=== PATIENT | male | born 1935 | race Caucasian/White ===

== ENCOUNTER 2018-05-22 10:13 | Inpatient (IN) | payer MEDICARE, OTHER ==
[~2018-05-22] VITALS: Ht 165.1 cm; Wt 76.2 kg
[2018-05-22 10:15] VITALS: BP 161/94
[2018-05-22 10:40] LABS: BASOPHILS % (AUTO) 1.7 % (0.0-2.0); EOSINOPHILS % (AUTO) 2.7 % (0.0-3.0); HEMATOCRIT 42.9 % (42.0-52.0); HEMOGLOBIN 14.5 G/DL (14.2-18.0); LYMPHOCYTES % (AUTO) 24.7 % (20.0-45.0); MEAN CORPUSCULAR VOLUME 96 FL (80-99); MONOCYTES % (AUTO) 10.9 % (1.0-10.0); NEUTROPHILS % (AUTO) 60.1 % (45.0-75.0); PLATELET COUNT 177 K/UL (150-450); RED BLOOD COUNT 4.48 M/UL (4.70-6.10); RED CELL DISTRIBUTION WIDTH 11.7 % (11.6-14.8); WHITE BLOOD COUNT 6.7 K/UL (4.8-10.8)
--- NOTE | 2018-05-22 11:06 | Emergency Room Report ---
History of Present Illness General Chief Complaint: Chest Pain Source: Patient, Medical Record, EMS Present Illness HPI 82-year-old male with a history of hypertension, diabetes, high cholesterol, coronary disease status post MD 4 years ago treated medically, presents with left parasternal chest discomfort type complaint that started just half an hour prior to arrival, was given aspirin as well as 2 sublingual nitroglycerin with much improvement of pain. He reports she's never had recent similar pain in the past, and he had no other symptoms such as shortness of breath cough fever abdominal pain and vomiting or any other associated symptomatology. He denies leg pain leg swelling, recent travel, hemoptysis, and reports he's not had chest pain like this recently at all. He cannot think of anything he ate or drank that may have triggered it either. Allergies: Coded Allergies: No Known Allergies (Unverified , 05/22/18) Patient History Past Medical History: see triage record Reviewed Nursing Documentation: PMH: Agreed; PSxH: Agreed Nursing Documentation-PMH Past Medical History: No History, Except For Hx Cardiac Problems: Yes Hx Hypertension: Yes Hx Diabetes: Yes Review of Systems Musculoskeletal: Reports: other - Chronic left knee pain All Other Systems: negative except mentioned in HPI Physical Exam Vital Signs Date Time Temp Pulse Resp B/P (MAP) Pulse Ox O2 Delivery O2 Flow Rate FiO2 05/22/18 10:06 99.0 86 14 196/98 99 Room Air Sp02 EP Interpretation: reviewed, normal General Appearance: no apparent distress, alert, non-toxic Head: normocephalic Eyes: bilateral eye normal inspection, bilateral eye PERRL, bilateral eye EOMI ENT: normal ENT inspection, hearing grossly normal, normal pharynx, no angioedema, normal voice, moist mucus membranes Neck: normal inspection, full range of motion, supple, supple/symm/no masses Respiratory: chest non-tender, lungs clear, normal breath sounds, chest symmetrical, palpation of chest normal Cardiovascular #1: normal peripheral pulses, regular rate, rhythm Cardiovascular #2: 2+ radial (R), 2+ radial (L) Gastrointestinal: normal inspection, non tender, soft, no mass, no guarding, no rebound Rectal: deferred Genitourinary: normal inspection, no CVA tenderness Musculoskeletal: back normal, gait/station normal, normal range of motion, non- tender, no calf tenderness, Shannon's Sign negative Neurologic: alert, responsive, 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 EKG Diagnostic Results EKG Time: 10:05 EP Interpretation: no st-t changes, no twi's, RBBB Rate: normal Rhythm: NSR ST Segments: no acute changes ASA given to the pt in ED: Yes Rhythm Strip Diag. Results Rhythm Strip Time: 11:05 EP Interpretation: yes Rate: 53 Rhythm: NSR, no PVC's, no ectopy Chest X-Ray Diagnostic Results Chest X-Ray Diagnostic Results : Chest X-Ray Ordered: Yes # of Views/Limited/Complete: 1 View Indication: Chest Pain EP Interpretation: Yes Interpretation: no consolidation, no effusion, no pneumothorax, no acute cardiopulmonary disease Impression: No acute disease Electronically Signed by: Devan Chaparro MD Last Vital Signs Date Time Temp Pulse Resp B/P (MAP) Pulse Ox O2 Delivery O2 Flow Rate FiO2 05/22/18 10:15 55 13 Room Air 05/22/18 10:15 97.8 161/94 98 Disposition: ADMITTED INPATIENT Condition: Stable Referrals: NOT CHOSEN FLY/,REFERRING (PCP) DEVAN CHAPARRO M.D May 22, 2018 11:06
--- NOTE | 2018-05-22 11:12 | Diagnostic Imaging Report ---
Indication: Chest pain Comparison: 01/25/2009 A single view chest radiograph was obtained. Findings: No definite infiltrate or pulmonary vascular congestion identified. The heart is enlarged. The aorta is mildly enlarged consistent with atherosclerotic vascular disease. The bones are osteopenic. Impression: No acute disease
[2018-05-22 11:17] VITALS: BP 154/52
[2018-05-22 11:58] LABS: ANION GAP 6 mmol/L (5-15); BLOOD UREA NITROGEN 32 mg/dL (7-18); CALCIUM 8.9 MG/DL (8.5-10.1); CARBON DIOXIDE 30 MMOL/L (21-32); CHLORIDE 104 MMOL/L (98-107); CREATININE 1.9 MG/DL (0.55-1.30); SODIUM 140 MMOL/L (136-145)
[2018-05-22 12:04] LABS: ALANINE AMINOTRANSFERASE 19 U/L (12-78); ALBUMIN/GLOBULIN RATIO 0.8 (1.0-2.7); ALKALINE PHOSPHATASE 52 U/L (46-116); ASPARTATE AMINO TRANSFERASE 19 U/L (15-37); BILIRUBIN,TOTAL 0.2 MG/DL (0.2-1.0)
[2018-05-22] MEDS ORDERED: Nitroglycerin Subl 0.4mg tab SL PRN (12:45)
[2018-05-22] MEDS ORDERED: KEPPRA500 M4 ORAL (12:59)
[2018-05-22] MEDS ORDERED: ACTOS30 MG ORAL (12:59)
[2018-05-22] MEDS ORDERED: AMLODIPINE BESYL5 MG ORAL (12:59)
[2018-05-22] MEDS ORDERED: VITAMIN D1000 UNI1 ORAL (12:59)
[2018-05-22] MEDS ORDERED: ASPIRIN325 MG ORAL (12:59)
[2018-05-22] MEDS ORDERED: ZOCOR20 M1 ORAL (12:59)
[2018-05-22] MEDS ORDERED: CYMBALTA60 MG ORAL (12:59)
[2018-05-22] MEDS ORDERED: METOPROLOL SUCC25 MG ORAL (12:59)
[2018-05-22] MEDS ORDERED: NAMENDA10 MG ORAL (12:59)
[2018-05-22 13:17] VITALS: BP 152/61
[2018-05-22] MEDS ORDERED: Enoxaparin 40mg Inj SUBQ SCH (14:00)
--- NOTE | 2018-05-22 14:23 | Cardiac Electrophysiology PN ---
Subjective Subjective [id number] Objective Last 24 Hour Vital Signs Date Time Temp Pulse Resp B/P (MAP) Pulse Ox O2 Delivery O2 Flow Rate FiO2 05/22/18 13:18 58 16 152/61 98 Room Air 05/22/18 13:17 58 15 152/61 99 Room Air 05/22/18 11:17 97.8 52 15 154/52 99 Room Air 05/22/18 10:15 55 13 Room Air 05/22/18 10:15 97.8 55 13 161/94 98 Room Air 05/22/18 10:06 99.0 86 14 196/98 99 Room Air Laboratory Tests Test 05/22/18 10:20 05/22/18 11:35 White Blood Count 6.7 K/UL (4.8-10.8) Red Blood Count 4.48 M/UL (4.70-6.10) L Hemoglobin 14.5 G/DL (14.2-18.0) Hematocrit 42.9 % (42.0-52.0) Mean Corpuscular Volume 96 FL (80-99) Mean Corpuscular Hemoglobin 32.3 PG (27.0-31.0) H Mean Corpuscular Hemoglobin Concent 33.7 G/DL (32.0-36.0) Red Cell Distribution Width 11.7 % (11.6-14.8) Platelet Count 177 K/UL (150-450) Mean Platelet Volume 7.6 FL (6.5-10.1) Neutrophils (%) (Auto) 60.1 % (45.0-75.0) Lymphocytes (%) (Auto) 24.7 % (20.0-45.0) Monocytes (%) (Auto) 10.9 % (1.0-10.0) H Eosinophils (%) (Auto) 2.7 % (0.0-3.0) Basophils (%) (Auto) 1.7 % (0.0-2.0) Sodium Level 140 MMOL/L (136-145) Potassium Level 5.0 MMOL/L (3.5-5.1) Chloride Level 104 MMOL/L (98-107) Carbon Dioxide Level 30 MMOL/L (21-32) Anion Gap 6 mmol/L (5-15) Blood Urea Nitrogen 32 mg/dL (7-18) H Creatinine 1.9 MG/DL (0.55-1.30) H Estimat Glomerular Filtration Rate mL/min (>60) Glucose Level 102 MG/DL (74-106) Calcium Level 8.9 MG/DL (8.5-10.1) Total Bilirubin 0.2 MG/DL (0.2-1.0) Aspartate Amino Transf (AST/SGOT) 19 U/L (15-37) Alanine Aminotransferase (ALT/SGPT) 19 U/L (12-78) Alkaline Phosphatase 52 U/L (46-116) Troponin I 0.007 ng/mL (0.000-0.056) Total Protein 6.6 G/DL (6.4-8.2) Albumin 3.0 G/DL (3.4-5.0) L Globulin 3.6 g/dL Albumin/Globulin Ratio 0.8 (1.0-2.7) L Andre Oswald MD May 22, 2018 14:23
[2018-05-22] MEDS ORDERED: Lexiscan 0.4mg/5ml syringe IV PRN (14:30)
[2018-05-22] MEDS ORDERED: Metoprolol Succinate XL 25mg tab ORAL SCH (15:30)
[2018-05-22] MEDS ORDERED: Metoprolol Succinate XL 50mg tab ORAL SCH (15:30)
[2018-05-22] MEDS ORDERED: DULoxetine 30mg cap ORAL SCH (16:00)
[2018-05-22 16:08] VITALS: BP 148/74
[2018-05-22] MEDS: NovoLOG Insulin Flexpen SUBQ SCH ×2 (16:30→20:55)
[2018-05-22] MEDS: Memantine 10mg tab ORAL SCH (17:11)
--- NOTE | 2018-05-22 17:30 | Consultation ---
DATE OF CONSULTATION: 05/22/2018 CARDIOLOGY CONSULTATION CONSULTING PHYSICIAN: Andre Oswald M.D. REFERRING PHYSICIAN: Zi Levy M.D. REASON FOR CONSULTATION: Chest pain, management of hypertension. HISTORY OF PRESENT ILLNESS: The patient is an 82-year-old [place] gentleman with history of hypertension, diabetes, hyperlipidemia, coronary artery disease, history of prior myocardial infarction four years ago presented to the emergency room with left-sided parasternal chest discomfort that started half hour prior to arrival to the emergency room. The patient received aspirin and two sublingual nitroglycerin with improvement of the pain. The patient states he usually follows up with Dr. Pollack as his primary care doctor. The patient's EKG also shows sinus rhythm with incomplete right bundle-branch block but no acute ST-T wave abnormalities. Cardiology consultation was obtained for further evaluation and management. REVIEW OF SYSTEMS: Review of systems was negative other than what was mentioned in the history of present illness. PAST MEDICAL HISTORY: As mentioned above. FAMILY HISTORY: Noncontributory. SOCIAL HISTORY: The patient does not smoke or drink alcohol. PHYSICAL EXAMINATION: VITAL SIGNS: Show blood pressure of 150/61, pulse 58, respirations 16, temperature is 98. HEAD AND NECK: Shows no JVD. LUNGS: Clear. CARDIOVASCULAR: Regular S1 and S2 with no gallop or murmur. ABDOMEN: Soft. EXTREMITIES: No pitting edema. LABORATORY AND DIAGNOSTIC DATA: EKG as mentioned above. White count of 6.7, hemoglobin 14.5, hematocrit 43, and platelet count 177. Sodium 140, potassium 5.0, BUN of 32, creatinine 1.9, and glucose of 102. Troponin is negative. ASSESSMENT AND PLAN: 1. Chest pain. The patient with multiple risk factors for coronary artery disease as well as history of prior SC. We will completely rule out SC protocol. We will repeat EKG and echocardiogram. In the meantime, continue the patient on aspirin and Lipitor. We will schedule the patient for nuclear stress test for further evaluation. 2. Hyperlipidemia on Lipitor. 3. Hypertension. Blood pressure currently elevated. Start the patient on metoprolol 25 mg b.i.d. 4. Diabetes on insulin. Thank you very much, Dr. Levy, for allowing me to participate in the care of this patient. Please do not hesitate to contact me for any questions regarding my evaluation, Sincerely, Andre Oswald M.D. DR: Momo JOB#: [id number] CC:
--- NOTE | 2018-05-22 17:45 | History and Physical Report ---
DATE OF ADMISSION: 05/22/2018 REASON FOR ADMISSION: 1. Chest pain. 2. Hypertension. HISTORY OF PRESENT ILLNESS: The patient is an 82-year-old gentleman with known diabetes, hypertension, hyperlipidemia, status post myocardial infarction four years ago. He presented to the emergency room this morning for further evaluation and care of left parasternal chest discomfort and pain. He was given sublingual nitroglycerin and aspirin. The patient is slightly feeling better. No nausea, vomiting, or diarrhea. Denies any palpitations. ALLERGIES: No known drug allergies. PAST MEDICAL HISTORY: 1. Hypertension. 2. Diabetes mellitus. 3. Hyperlipidemia. 4. Coronary artery disease. 5. Myocardial infarction. SOCIAL HISTORY: The patient denies any current tobacco, alcohol, or illicit drug use. PAST SURGICAL HISTORY: Noncontributory. REVIEW OF SYSTEMS: NEUROLOGIC: The patient denies headache, change in vision, syncope, or presyncopal episodes. CARDIOVASCULAR: He was having chest pain and pressure, but no palpitations. PULMONARY: No difficulty breathing, productive cough, or sputum. GASTROINTESTINAL/GENITOURINARY: No changes in urinary or bowel habits. No nausea, vomiting or diarrhea. ENDOCRINOLOGIC: No night sweats, fevers, or chills. MUSCULOSKELETAL: The patient is feeling weak, tired, and fatigued. LABORATORY DATA: Labs dated 05/22/2018, white cell count 6.7, hemoglobin 14.5, and platelet count 177,000. Sodium 140, potassium 5, BUN 32, creatinine 1.9, and bicarb 30. Troponin 0.007. PHYSICAL EXAMINATION: VITAL SIGNS: Blood pressure 152/61, respiratory rate 16, pulse 58, and temperature 97.8. GENERAL: The patient is awake and alert, not otherwise in distress. HEENT: Extraocular muscles intact. No lymphadenopathy noted. CARDIOVASCULAR: S1 and S2. No rubs or gallops. PULMONARY: Clear to auscultation bilaterally. No rales, rhonchi or wheezes. ABDOMEN: Nondistended and nontender. EXTREMITIES: No edema noted. ASSESSMENT AND PLAN: 1. Acute coronary syndrome, unstable angina with chest pain. Cardiology has been consulted. The patient is undergoing echocardiogram with serial troponins. Defer further management to Cardiology. 2. Hypertension, stable. We will continue home medications and adjust as deemed appropriate. 3. Diabetes mellitus. The patient to continue insulin sliding scale along with Actos. 4. Deep venous thrombosis prophylaxis with Lovenox. 5. Dementia. The patient to continue his home medication of Namenda. 6. At this time Cardiology, Dr. Oswald has been called. Zichantale Levy MD DR: ADAIR JOB#: [id number] CC:
[2018-05-22 20:00] VITALS: BP 146/77
[2018-05-22] MEDS: Atorvastatin 20mg tab ORAL SCH (20:57)
[2018-05-22] MEDS ORDERED: Metoprolol 25mg tab ORAL SCH (21:00)
[2018-05-23] VITALS: BP 145/77
[2018-05-23 04:00] VITALS: BP 125/79
[2018-05-23 05:11] LABS: BASOPHILS % (AUTO) 0.6 % (0.0-2.0); EOSINOPHILS % (AUTO) 2.8 % (0.0-3.0); HEMATOCRIT 37.4 % (42.0-52.0); HEMOGLOBIN 12.8 G/DL (14.2-18.0); LYMPHOCYTES % (AUTO) 25.4 % (20.0-45.0); MEAN CORPUSCULAR VOLUME 95 FL (80-99); MONOCYTES % (AUTO) 12.5 % (1.0-10.0); NEUTROPHILS % (AUTO) 58.7 % (45.0-75.0); PLATELET COUNT 163 K/UL (150-450); RED BLOOD COUNT 3.94 M/UL (4.70-6.10); RED CELL DISTRIBUTION WIDTH 11.6 % (11.6-14.8); WHITE BLOOD COUNT 6.3 K/UL (4.8-10.8)
[2018-05-23 05:25] LABS: ANION GAP 10 mmol/L (5-15); BLOOD UREA NITROGEN 33 mg/dL (7-18); CALCIUM 9.2 MG/DL (8.5-10.1); CARBON DIOXIDE 26 MMOL/L (21-32); CHLORIDE 104 MMOL/L (98-107); CHOLESTEROL 157 MG/DL (< 200); CREATININE 2.1 MG/DL (0.55-1.30); HDL CHOLESTEROL 41 MG/DL (40-60); SODIUM 140 MMOL/L (136-145); TRIGLYCERIDES 81 MG/DL (30-150)
[2018-05-23] MEDS: NovoLOG Insulin Flexpen SUBQ SCH ×4 (06:16→20:39)
--- NOTE | 2018-05-23 06:19 | Nephrology Progress Note ---
Assessment/Plan Assessment/Plan A/P 1) ACS/Chest Pain - Patient in AFib - await cardiology mgmt and further recc's 2) JEREMY- Cr at 2.1 - Increase IVFs, check Renal US 3) HTN- stable 4) DVT prophylaxsis- lovenox 5) HTN- stable 6) DM- ISS and actos Subjective Date patient seen: May 23, 2018 Time patient seen: 06:16 ROS Limited/Unobtainable: No Cardiovascular: Reports: chest pain Allergies: Coded Allergies: ALPRAZOLAM (Verified Allergy, Mild, 05/22/18) All Systems: reviewed and negative except above Subjective Patient says still having chest discomfort Objective Last 24 Hour Vital Signs Date Time Temp Pulse Resp B/P (MAP) Pulse Ox O2 Delivery O2 Flow Rate FiO2 05/23/18 00:00 98.7 67 20 145/77 (99) 96 05/23/18 00:00 70 05/22/18 21:00 Room Air 05/22/18 20:00 98.2 63 23 146/77 (100) 99 05/22/18 16:35 81 148/74 05/22/18 16:08 98.0 81 18 148/74 (98) 99 05/22/18 16:03 83 163/91 05/22/18 16:00 59 05/22/18 15:43 Room Air 05/22/18 13:18 58 16 152/61 98 Room Air 05/22/18 13:17 58 15 152/61 99 Room Air 05/22/18 11:17 97.8 52 15 154/52 99 Room Air 05/22/18 10:15 55 13 Room Air 05/22/18 10:15 97.8 55 13 161/94 98 Room Air 05/22/18 10:06 99.0 86 14 196/98 99 Room Air Intake and Output 05/22/18 05/23/18 18:59 06:59 Intake Total 900 ml Balance 900 ml Intake Oral 800 ml IV Total 100 ml # Voids 2 Laboratory Tests 05/22/18 10:20: White Blood Count 6.7, Red Blood Count 4.48L, Hemoglobin 14.5, Hematocrit 42.9, Mean Corpuscular Volume 96, Mean Corpuscular Hemoglobin 32.3H, Mean Corpuscular Hemoglobin Concent 33.7, Red Cell Distribution Width 11.7, Platelet Count 177, Mean Platelet Volume 7.6, Neutrophils (%) (Auto) 60.1, Lymphocytes (%) (Auto) 24.7, Monocytes (%) (Auto) 10.9H, Eosinophils (%) (Auto) 2.7, Basophils (%) ( Auto) 1.7 05/22/18 11:35: Sodium Level 140, Potassium Level 5.0, Chloride Level 104, Carbon Dioxide Level 30, Anion Gap 6, Blood Urea Nitrogen 32H, Creatinine 1.9H, Estimat Glomerular Filtration Rate , Glucose Level 102, Calcium Level 8.9, Total Bilirubin 0.2, Aspartate Amino Transf (AST/SGOT) 19, Alanine Aminotransferase (ALT/SGPT) 19, Alkaline Phosphatase 52, Troponin I 0.007, Total Protein 6.6, Albumin 3.0L, Globulin 3.6, Albumin/Globulin Ratio 0.8L 05/22/18 18:50: Troponin I 0.007 05/23/18 03:00: White Blood Count 6.3, Red Blood Count 3.94L, Hemoglobin 12.8L, Hematocrit 37.4L , Mean Corpuscular Volume 95, Mean Corpuscular Hemoglobin 32.5H, Mean Corpuscular Hemoglobin Concent 34.3, Red Cell Distribution Width 11.6, Platelet Count 163, Mean Platelet Volume 7.7, Neutrophils (%) (Auto) 58.7, Lymphocytes (% ) (Auto) 25.4, Monocytes (%) (Auto) 12.5H, Eosinophils (%) (Auto) 2.8, Basophils (%) (Auto) 0.6, Sodium Level 140, Potassium Level 4.0, Chloride Level 104, Carbon Dioxide Level 26, Anion Gap 10, Blood Urea Nitrogen 33H, Creatinine 2.1H, Estimat Glomerular Filtration Rate , Glucose Level 88, Calcium Level 9.2, Troponin I 0.004, Pro-B-Type Natriuretic Peptide 653H, Triglycerides Level 81, Cholesterol Level 157, LDL Cholesterol 101H, HDL Cholesterol 41, Cholesterol/ HDL Ratio 3.8 Height (Feet): 5 Height (Inches): 5.00 Weight (Pounds): 168 General Appearance: no apparent distress, alert EENT: normal ENT inspection Neck: non-tender Cardiovascular: regularly irregular Respiratory/Chest: lungs clear, normal breath sounds Abdomen: non tender, soft Edema: no edema noted Arm (L), no edema noted Arm (R), no edema noted Leg (L), no edema noted Leg (R), no edema noted Pedal (L), no edema noted Pedal (R), no edema noted Generalized Zi Levy MD May 23, 2018 06:19
[2018-05-23 08:00] VITALS: BP 136/63
[2018-05-23] MEDS ORDERED: Metoprolol Succinate XL 25mg tab ORAL SCH (09:00)
[2018-05-23] MEDS: Aspirin Baby 81mg ORAL SCH (09:25)
[2018-05-23] MEDS: DULoxetine 30mg cap ORAL SCH (09:25)
[2018-05-23] MEDS: Memantine 10mg tab ORAL SCH ×2 (09:25→18:06)
--- NOTE | 2018-05-23 09:36 | Diagnostic Imaging Report ---
EXAM: US Retroperitoneal Limited, Renal CLINICAL HISTORY: Increasing renal function tests TECHNIQUE: Real-time ultrasound of the retroperitoneum (limited) with image documentation. COMPARISON: No relevant prior studies available. FINDINGS: Aorta: Abdominal aorta and IVC are obscured by overlying bowel gas. Right kidney: Scattered simple-appearing right renal cortical cysts, largest measuring 3.8 cm. Right kidney measures 11.6 x 6.4 x 5.7 cm. Diffusely echogenic parenchyma. Normal cortical thickness. No visible stones. No hydronephrosis. Left kidney: Scattered simple-appearing left renal cortical cysts, largest measuring 1.7 cm. Left kidney measures 11.1 x 5.5 x 5.1 cm. Diffusely echogenic parenchyma. Normal cortical thickness. No visible stones. No hydronephrosis. Bladder: Prevoid urinary bladder volume of 31 cc. Bilateral ureteral jets were identified with Doppler interrogation. Other findings: Incidental note of a 3.1 cm simple-appearing cyst in the left hepatic lobe. IMPRESSION: 1. Bilateral echogenic kidneys, suggesting underlying renal parenchymal disease. No hydronephrosis. 2. Scattered simple-appearing right renal cortical cysts, largest measuring 3.8 cm. 3. Scattered simple-appearing left renal cortical cysts, largest measuring 1.7 cm. 4. Incidental note of a 3.1 cm simple-appearing cyst in the left hepatic lobe.
[2018-05-23 12:00] VITALS: BP 107/48
[2018-05-23] MEDS ORDERED: Enoxaparin 40mg Inj SUBQ SCH (14:00)
--- NOTE | 2018-05-23 14:34 | Cardiology Report ---
APPROVED REPORT EXAM: Two-dimensional and M-mode echocardiogram with Doppler and color Doppler. INDICATION Chest Pain M-Mode DIMENSIONS IVSd1.1 (0.7-1.1cm)Left Atrium (MM)3.2 (1.6-4.0cm) LVDd4.3 (3.5-5.6cm)Aortic Root2.6 (2.0-3.7cm) PWd0.9 (0.7-1.1cm)Aortic Cusp Exc.1.8 (1.5-2.0cm) LVDs2.9 (2.5-4.0cm) PWs1.4 cm Normal left ventricular chamber size, systolic function and wall motion. Left ventricular ejection fraction estimated to be 55-60 %. Borderline left ventricular hypertrophy. Anterior Echo-free space, may be due to pericardial fat or effusion. Left atrial size at upper limits of normal. Right cardiac chamber sizes are within normal limits. Focal aortic valve sclerosis with adequate cusp excursion. Thickened mitral valve leaflets with normal excursion. Mild mitral annulus and aortic root calcification. Pulmonic valve not well visualized. Normal tricuspid valve structure. IVC dilated at 2.5 cm with physiological collapse, suggestive of increased RA pressure. A color flow and spectral Doppler study was performed and revealed: Moderate aortic insufficiency. Mild mitral regurgitation. Mitral diastolic velocities suggest mild left ventricular diastolic dysfunction (Grade I). No tricuspid regurgitation. Tricuspid systolic velocities suggests peak right ventricular systolic pressure of 47 mmHg, consistent with moderate pulmonary hypertension. No pulmonic regurgitation present.
--- NOTE | 2018-05-23 14:56 | Cardiology Report ---
APPROVED REPORT EKG Measurement Heart [id number] Atrial fibrillation Left axis deviation Abnormal ECG
--- NOTE | 2018-05-23 14:56 | Cardiac Electrophysiology PN ---
Assessment/Plan Assessment/Plan 1. Chest pain. The patient with multiple risk factors for coronary artery disease as well as history of prior SC and PTCA 2010. Ruled out for SC. Echocardiogram EF 55% Continue the patient on aspirin and Lipitor. We will schedule the patient for nuclear stress test for further evaluation. 2. Atrial fib with rate 105 that converted to SR. Increase Toprol to 50 mg daily. 3. Hyperlipidemia on Lipitor. 4. Hypertension. Increase metoprolol to 50 mg daily. DC Norvasc 5. Diabetes on insulin. DARIO Son Ophtalmologist Armani BISHOP RN Subjective Subjective No CP or SOB. Had atrial fib with mild CP last night that converted to SR. Objective Last 24 Hour Vital Signs Date Time Temp Pulse Resp B/P (MAP) Pulse Ox O2 Delivery O2 Flow Rate FiO2 05/23/18 09:27 61 136/63 05/23/18 09:26 61 136/63 05/23/18 09:00 Room Air 05/23/18 08:00 97.7 61 20 136/63 (87) 96 05/23/18 08:00 58 05/23/18 05:20 97 05/23/18 04:00 105 05/23/18 04:00 97.9 99 20 125/79 (94) 96 05/23/18 00:00 98.7 67 20 145/77 (99) 96 05/23/18 00:00 70 05/22/18 21:00 Room Air 05/22/18 20:00 98.2 63 23 146/77 (100) 99 05/22/18 16:35 81 148/74 05/22/18 16:08 98.0 81 18 148/74 (98) 99 05/22/18 16:03 83 163/91 05/22/18 16:00 59 05/22/18 15:43 Room Air Intake and Output 05/22/18 05/23/18 19:00 07:00 Intake Total 900 ml Output Total 300 ml Balance 900 ml -300 ml Intake Oral 800 ml IV Total 100 ml Output Urine Total 300 ml # Voids 2 Laboratory Tests Test 05/22/18 18:50 05/23/18 03:00 Troponin I 0.007 ng/mL (0.000-0.056) 0.004 ng/mL (0.000-0.056) White Blood Count 6.3 K/UL (4.8-10.8) Red Blood Count 3.94 M/UL (4.70-6.10) L Hemoglobin 12.8 G/DL (14.2-18.0) L Hematocrit 37.4 % (42.0-52.0) L Mean Corpuscular Volume 95 FL (80-99) Mean Corpuscular Hemoglobin 32.5 PG (27.0-31.0) H Mean Corpuscular Hemoglobin Concent 34.3 G/DL (32.0-36.0) Red Cell Distribution Width 11.6 % (11.6-14.8) Platelet Count 163 K/UL (150-450) Mean Platelet Volume 7.7 FL (6.5-10.1) Neutrophils (%) (Auto) 58.7 % (45.0-75.0) Lymphocytes (%) (Auto) 25.4 % (20.0-45.0) Monocytes (%) (Auto) 12.5 % (1.0-10.0) H Eosinophils (%) (Auto) 2.8 % (0.0-3.0) Basophils (%) (Auto) 0.6 % (0.0-2.0) Sodium Level 140 MMOL/L (136-145) Potassium Level 4.0 MMOL/L (3.5-5.1) Chloride Level 104 MMOL/L (98-107) Carbon Dioxide Level 26 MMOL/L (21-32) Anion Gap 10 mmol/L (5-15) Blood Urea Nitrogen 33 mg/dL (7-18) H Creatinine 2.1 MG/DL (0.55-1.30) H Estimat Glomerular Filtration Rate mL/min (>60) Glucose Level 88 MG/DL (74-106) Calcium Level 9.2 MG/DL (8.5-10.1) Pro-B-Type Natriuretic Peptide 653 pg/mL (0-125) H Triglycerides Level 81 MG/DL (30-150) Cholesterol Level 157 MG/DL (< 200) LDL Cholesterol 101 mg/dL (<100) H HDL Cholesterol 41 MG/DL (40-60) Cholesterol/HDL Ratio 3.8 (3.3-4.4) Objective HEAD AND NECK: Shows no JVD. LUNGS: Clear. CARDIOVASCULAR: Regular S1 and S2 with no gallop or murmur. ABDOMEN: Soft. EXTREMITIES: No pitting edema. Andre Oswald MD May 23, 2018 14:56
--- NOTE | 2018-05-23 15:02 | Cardiology Report ---
APPROVED REPORT EKG Measurement Heart [id number] Sinus bradycardia Possible Left atrial enlargement Left axis deviation Incomplete right bundle branch block Abnormal ECG
[2018-05-23 16:00] VITALS: BP 132/59
[2018-05-23 19:57] VITALS: BP 97/47
[2018-05-23] MEDS: Atorvastatin 20mg tab ORAL SCH (20:29)
--- NOTE | 2018-05-23 21:15 | Consultation ---
DATE OF CONSULTATION: 05/23/2018 PULMONARY CONSULTATION CONSULTING PHYSICIAN: Joshua Stoner M.D. HISTORY OF PRESENT ILLNESS: This is a very pleasant 82-year-old male, who was admitted to the hospital with chest pain and shortness of breath. I have been asked to perform pulmonary consultation. This is an 82-year-old male with history of hypertension, diabetes mellitus, hyperlipidemia, CAD, and previous OR, who came to the hospital with parasternal chest pain. This occurred approximately an hour or so before arrival to the ER. The patient received aspirin and nitroglycerin. The patient's EKG was nonspecific. The patient also underwent imaging studies overnight, which show clear lung march bilaterally. The patient denies being an active smoker, although reports he has smoked in the past socially. REVIEW OF SYSTEMS: Denies any headaches, hematemesis, melena, hematochezia, or weight loss. PAST MEDICAL HISTORY: Notable for hypertension, diabetes mellitus, hyperlipidemia, CAD, and previous tobacco usage. PAST SURGICAL HISTORY: None reported. SOCIAL HISTORY: As discussed above. FAMILY HISTORY: Noncontributory. PHYSICAL EXAMINATION: GENERAL: Reveals an 82-year-old male. HEENT: Unremarkable. LUNGS: Clear breath sounds bilaterally. HEART: Normal heart sounds. ABDOMEN: Soft. EXTREMITIES: No edema. NEUROLOGIC: Nonfocal. LABORATORY DATA: Laboratory testing is unremarkable with normal CBC and BMP. Creatinine 1.9. IMPRESSION: 1. Chest pain, rule out CAD/ACS. 2. Ex-smoker. 3. Hypertension. 4. Hyperlipidemia. 5. Diabetes mellitus. DISCUSSION: Continue present medications and care. Predominant issue is cardiac. I do not see pulmonary issue. I will continue to follow carefully as requested by Dr. Levy. Thank you for the consultation. Joshua Stoner M.D. DR: JOSE JOB#: [id number] CC:
[2018-05-23] MEDS ORDERED: Zolpidem 5mg tab ORAL ONE (22:45)
[2018-05-24] VITALS: BP 101/50
[2018-05-24 04:00] VITALS: BP 97/59
[2018-05-24] MEDS: NovoLOG Insulin Flexpen SUBQ SCH ×4 (06:00→20:49)
[2018-05-24 08:00] VITALS: BP 149/70
--- NOTE | 2018-05-24 08:06 | Pulmonology Progress Note ---
Assessment/Plan Assessment/Plan IMPRESSION: 1. Chest pain, rule out CAD/ACS. 2. Ex-smoker. 3. Hypertension. 4. Hyperlipidemia. 5. Diabetes mellitus. DISCUSSION: Continue present medications and care. Predominant issue is cardiac. Pulmonary status is stable. I will continue to follow carefully as requested by Dr. Levy. Stress test planned. Subjective Interval Events: No new problems. Feeling well. Constitutional: Reports: no symptoms HEENT: Repors: no symptoms Respiratory: Reports: no symptoms Cardiovascular: Reports: no symptoms Gastrointestinal/Abdominal: Reports: no symptoms Genitourinary: Reports: no symptoms Allergies: Coded Allergies: ALPRAZOLAM (Verified Allergy, Mild, 05/22/18) Objective Last 24 Hour Vital Signs Date Time Temp Pulse Resp B/P (MAP) Pulse Ox O2 Delivery O2 Flow Rate FiO2 05/24/18 04:00 97.7 65 21 97/59 (72) 99 05/24/18 04:00 67 05/24/18 00:00 97.8 65 21 101/50 (67) 100 05/24/18 00:00 72 05/23/18 21:00 Room Air 05/23/18 20:00 65 05/23/18 19:57 97.7 64 20 97/47 (64) 96 05/23/18 16:00 63 05/23/18 16:00 97.7 61 18 132/59 (83) 99 05/23/18 12:00 97.9 62 18 107/48 (67) 96 05/23/18 12:00 66 05/23/18 09:27 61 136/63 05/23/18 09:26 61 136/63 05/23/18 09:00 Room Air Intake and Output 05/23/18 05/24/18 18:59 06:59 Intake Total 450 ml 652 ml Balance 450 ml 652 ml Intake Oral 450 ml 300 ml IV Total 352 ml # Voids 3 3 # Bowel Movements 3 General Appearance: no acute distress HEENT: normocephalic Respiratory/Chest: chest wall non-tender, lungs clear Cardiovascular: normal peripheral pulses, normal rate Current Medications Medications (Trade) Dose Ordered Sig/Usha Route PRN Reason Start Time Stop Time Status Last Admin Dose Admin Acetaminophen (Tylenol) 650 mg Q4H PRN ORAL Mild Pain (Pain Scale 1-3) 05/22/18 12:45 06/21/18 12:44 05/23/18 04:53 Aspirin (ASA) 81 mg DAILY ORAL 05/23/18 09:00 06/22/18 08:59 05/23/18 09:25 Atorvastatin Calcium (Lipitor) 20 mg BEDTIME ORAL 05/22/18 21:00 06/21/18 20:59 05/23/18 20:29 Clonidine HCl (Catapres Tab) 0.1 mg Q2H PRN ORAL SBP >170mmHg 05/22/18 14:30 06/21/18 14:29 Dextrose (Dextrose 50%) 25 ml Q30M PRN IV Hypoglycemia 05/22/18 12:45 06/21/18 12:44 Dextrose (Dextrose 50%) 50 ml Q30M PRN IV Hypoglycemia 05/22/18 12:45 06/21/18 12:44 Duloxetine HCl (Cymbalta) 60 mg DAILY ORAL 05/23/18 09:00 06/22/18 08:59 05/23/18 09:25 Enoxaparin Sodium (Lovenox) 30 mg Q24H SUBQ 05/23/18 14:00 06/22/18 13:59 05/23/18 14:35 Famotidine (Pepcid) 40 mg DAILY ORAL 05/23/18 09:00 06/22/18 08:59 05/23/18 09:25 Insulin Aspart (NovoLOG) BEFORE MEALS AND HS SUBQ 05/22/18 16:30 06/21/18 16:29 05/23/18 20:39 Levetiracetam (Keppra) 500 mg QHS ORAL 05/22/18 21:00 06/21/18 20:59 05/23/18 20:29 Memantine (Namenda) 10 mg BID ORAL 05/22/18 18:00 06/21/18 17:59 05/23/18 18:06 Metoprolol Succinate (Toprol XL) 50 mg DAILY ORAL 05/24/18 09:00 06/22/18 08:59 Nitroglycerin (Ntg) 0.4 mg Q5M PRN SL Prn Chest Pain 05/22/18 12:45 06/21/18 12:44 Ondansetron HCl (Zofran) 4 mg Q6H PRN IVP Nausea & Vomiting 05/22/18 12:45 06/21/18 12:44 Pioglitazone HCl (Actos) 15 mg ACBREAKFAST ORAL 05/23/18 06:30 06/22/18 06:29 05/24/18 06:03 Regadenoson (Lexiscan) 0.4 mg ONCE PRN IV STRESS TEST 05/22/18 14:30 05/27/18 14:29 Sodium Chloride 1,000 ml @ 100 mls/hr Q10H IV 05/23/18 06:30 06/22/18 06:29 05/24/18 02:29 Joshua Stoner MD May 24, 2018 08:06
--- NOTE | 2018-05-24 08:15 | Nephrology Progress Note ---
Assessment/Plan Assessment/Plan A/P 1) ACS/Chest Pain - AFib, now NSR - stress test tomorrow and then DC if negative - [place] ruled out 2) JEREMY/CKD 4- Cr at 2.1 yest. AM labs pending - Renal US negative 3) HTN- stable 4) DVT prophylaxsis- lovenox 5) HTN- stable 6) DM- ISS and actos Subjective Date patient seen: May 24, 2018 Time patient seen: 08:11 ROS Limited/Unobtainable: No Allergies: Coded Allergies: ALPRAZOLAM (Verified Allergy, Mild, 05/22/18) All Systems: reviewed and negative except above Subjective Patient resting. Chest pain has resolved Objective Last 24 Hour Vital Signs Date Time Temp Pulse Resp B/P (MAP) Pulse Ox O2 Delivery O2 Flow Rate FiO2 05/24/18 04:00 97.7 65 21 97/59 (72) 99 05/24/18 04:00 67 05/24/18 00:00 97.8 65 21 101/50 (67) 100 05/24/18 00:00 72 05/23/18 21:00 Room Air 05/23/18 20:00 65 05/23/18 19:57 97.7 64 20 97/47 (64) 96 05/23/18 16:00 63 05/23/18 16:00 97.7 61 18 132/59 (83) 99 05/23/18 12:00 97.9 62 18 107/48 (67) 96 05/23/18 12:00 66 05/23/18 09:27 61 136/63 05/23/18 09:26 61 136/63 05/23/18 09:00 Room Air Intake and Output 05/23/18 05/24/18 18:59 06:59 Intake Total 450 ml 652 ml Balance 450 ml 652 ml Intake Oral 450 ml 300 ml IV Total 352 ml # Voids 3 3 # Bowel Movements 3 Laboratory Tests 05/24/18 07:55: White Blood Count [Pending], Red Blood Count [Pending], Hemoglobin [Pending], Hematocrit [Pending], Mean Corpuscular Volume [Pending], Mean Corpuscular Hemoglobin [Pending], Mean Corpuscular Hemoglobin Concent [Pending], Red Cell Distribution Width [Pending], Platelet Count [Pending], Mean Platelet Volume [ Pending], Neutrophils (%) (Auto) [Pending], Lymphocytes (%) (Auto) [Pending], Monocytes (%) (Auto) [Pending], Eosinophils (%) (Auto) [Pending], Basophils (%) (Auto) [Pending], Sodium Level [Pending], Potassium Level [Pending], Chloride Level [Pending], Carbon Dioxide Level [Pending], Blood Urea Nitrogen [Pending], Creatinine [Pending], Estimat Glomerular Filtration Rate [Pending], Glucose Level [Pending], Calcium Level [Pending] Height (Feet): 5 Height (Inches): 5.00 Weight (Pounds): 168 General Appearance: no apparent distress, alert EENT: normal ENT inspection Neck: normal alignment, supple Cardiovascular: normal rate, regular rhythm Respiratory/Chest: lungs clear, normal breath sounds Abdomen: non tender, soft Edema: no edema noted Arm (L), no edema noted Arm (R), no edema noted Leg (L), no edema noted Leg (R), no edema noted Pedal (L), no edema noted Pedal (R), no edema noted Generalized Zi Levy MD May 24, 2018 08:15
[2018-05-24 08:21] LABS: BASOPHILS % (AUTO) 1.2 % (0.0-2.0); EOSINOPHILS % (AUTO) 2.9 % (0.0-3.0); HEMATOCRIT 39.2 % (42.0-52.0); HEMOGLOBIN 13.3 G/DL (14.2-18.0); LYMPHOCYTES % (AUTO) 24.3 % (20.0-45.0); MEAN CORPUSCULAR VOLUME 96 FL (80-99); MONOCYTES % (AUTO) 9.2 % (1.0-10.0); NEUTROPHILS % (AUTO) 62.4 % (45.0-75.0); PLATELET COUNT 156 K/UL (150-450); RED BLOOD COUNT 4.09 M/UL (4.70-6.10); RED CELL DISTRIBUTION WIDTH 11.9 % (11.6-14.8); WHITE BLOOD COUNT 5.1 K/UL (4.8-10.8)
[2018-05-24] MEDS: DULoxetine 30mg cap ORAL SCH (08:24)
[2018-05-24] MEDS: Memantine 10mg tab ORAL SCH ×2 (08:24→17:28)
[2018-05-24] MEDS: Aspirin Baby 81mg ORAL SCH (08:25)
[2018-05-24] MEDS: Metoprolol Succinate XL 50mg tab ORAL SCH (08:25)
[2018-05-24 08:47] LABS: ANION GAP 7 mmol/L (5-15); BLOOD UREA NITROGEN 37 mg/dL (7-18); CALCIUM 9.5 MG/DL (8.5-10.1); CARBON DIOXIDE 26 MMOL/L (21-32); CHLORIDE 106 MMOL/L (98-107); CREATININE 2.2 MG/DL (0.55-1.30); POTASSIUM 3.8 MMOL/L (3.5-5.1); SODIUM 139 MMOL/L (136-145)
[2018-05-24 12:00] VITALS: BP 139/65
[2018-05-24] MEDS: Enoxaparin 30mg Inj SUBQ SCH (14:00)
[2018-05-24] MEDS ORDERED: Flu Vaccine (Alfuria) for Pts Less than 65 Years old IM ONE (14:00)
--- NOTE | 2018-05-24 14:06 | Cardiac Electrophysiology PN ---
Assessment/Plan Assessment/Plan 1. Chest pain. The patient with multiple risk factors for coronary artery disease as well as history of prior [place] and PTCA 2010. Ruled out for [place]. Echocardiogram EF 55% Continue aspirin and Lipitor. Nuclear stress test Friday. 2. Atrial fib with rate 105 that converted to SR. Now on Toprol 50 mg daily. 3. Hyperlipidemia on Lipitor. 4. Hypertension. On metoprolol 50 mg daily. 5. Diabetes on insulin. DARIO RN Subjective Subjective No CP or SOB. Remained in SR. Objective Last 24 Hour Vital Signs Date Time Temp Pulse Resp B/P (MAP) Pulse Ox O2 Delivery O2 Flow Rate FiO2 05/24/18 09:00 Room Air 05/24/18 08:25 65 149/70 05/24/18 08:00 58 05/24/18 08:00 97.3 65 18 149/70 (96) 95 05/24/18 04:00 97.7 65 21 97/59 (72) 99 05/24/18 04:00 67 05/24/18 00:00 97.8 65 21 101/50 (67) 100 05/24/18 00:00 72 05/23/18 21:00 Room Air 05/23/18 20:00 65 05/23/18 19:57 97.7 64 20 97/47 (64) 96 05/23/18 16:00 63 05/23/18 16:00 97.7 61 18 132/59 (83) 99 Intake and Output 05/23/18 05/24/18 18:59 06:59 Intake Total 450 ml 652 ml Balance 450 ml 652 ml Intake Oral 450 ml 300 ml IV Total 352 ml # Voids 3 3 # Bowel Movements 3 Laboratory Tests Test 05/24/18 07:55 White Blood Count 5.1 K/UL (4.8-10.8) Red Blood Count 4.09 M/UL (4.70-6.10) L Hemoglobin 13.3 G/DL (14.2-18.0) L Hematocrit 39.2 % (42.0-52.0) L Mean Corpuscular Volume 96 FL (80-99) Mean Corpuscular Hemoglobin 32.4 PG (27.0-31.0) H Mean Corpuscular Hemoglobin Concent 33.8 G/DL (32.0-36.0) Red Cell Distribution Width 11.9 % (11.6-14.8) Platelet Count 156 K/UL (150-450) Mean Platelet Volume 7.4 FL (6.5-10.1) Neutrophils (%) (Auto) 62.4 % (45.0-75.0) Lymphocytes (%) (Auto) 24.3 % (20.0-45.0) Monocytes (%) (Auto) 9.2 % (1.0-10.0) Eosinophils (%) (Auto) 2.9 % (0.0-3.0) Basophils (%) (Auto) 1.2 % (0.0-2.0) Sodium Level 139 MMOL/L (136-145) Potassium Level 3.8 MMOL/L (3.5-5.1) Chloride Level 106 MMOL/L (98-107) Carbon Dioxide Level 26 MMOL/L (21-32) Anion Gap 7 mmol/L (5-15) Blood Urea Nitrogen 37 mg/dL (7-18) H Creatinine 2.2 MG/DL (0.55-1.30) H Estimat Glomerular Filtration Rate mL/min (>60) Glucose Level 91 MG/DL (74-106) Calcium Level 9.5 MG/DL (8.5-10.1) Objective HEAD AND NECK: No JVD. LUNGS: Clear. CARDIOVASCULAR: Regular S1 and S2 with no gallop or murmur. ABDOMEN: Soft. EXTREMITIES: No pitting edema. Andre Oswald MD May 24, 2018 14:06
[2018-05-24 16:00] VITALS: BP 123/59
[2018-05-24 20:00] VITALS: BP 130/66
[2018-05-24] MEDS: Atorvastatin 20mg tab ORAL SCH (20:46)
[2018-05-24] MEDS ORDERED: Zolpidem 5mg tab ORAL ONE (23:30)
[2018-05-25] VITALS: BP 146/65
[2018-05-25 04:00] VITALS: BP 148/66
[2018-05-25] MEDS: NovoLOG Insulin Flexpen SUBQ SCH ×3 (05:52→16:29)
[2018-05-25 07:40] LABS: EOSINOPHILS % (AUTO) 3.3 % (0.0-3.0); HEMATOCRIT 33.7 % (42.0-52.0); HEMOGLOBIN 11.7 G/DL (14.2-18.0); LYMPHOCYTES % (AUTO) 24.2 % (20.0-45.0); MEAN CORPUSCULAR VOLUME 95 FL (80-99); MONOCYTES % (AUTO) 14.7 % (1.0-10.0); NEUTROPHILS % (AUTO) 56.8 % (45.0-75.0); PLATELET COUNT 135 K/UL (150-450); RED BLOOD COUNT 3.53 M/UL (4.70-6.10); RED CELL DISTRIBUTION WIDTH 11.6 % (11.6-14.8); WHITE BLOOD COUNT 4.8 K/UL (4.8-10.8)
[2018-05-25 07:57] LABS: ANION GAP 8 mmol/L (5-15); BLOOD UREA NITROGEN 38 mg/dL (7-18); CARBON DIOXIDE 25 MMOL/L (21-32); CHLORIDE 107 MMOL/L (98-107); CREATININE 2.2 MG/DL (0.55-1.30); POTASSIUM 3.7 MMOL/L (3.5-5.1); SODIUM 140 MMOL/L (136-145)
[2018-05-25 08:00] VITALS: BP 148/66
[2018-05-25] MEDS ORDERED: Lexiscan 0.4mg/5ml syringe IV SCH (08:00)
[2018-05-25] MEDS: Metoprolol Succinate XL 50mg tab ORAL SCH (08:01)
[2018-05-25 08:04] LABS: CALCIUM 8.4 MG/DL (8.5-10.1)
--- NOTE | 2018-05-25 08:47 | Nephrology Progress Note ---
Assessment/Plan Assessment/Plan A/P 1) ACS/Chest Pain - AFib, now NSR, stress test today - [place] ruled out. DC today if cleared by cardiology 2) JEREMY/CKD 4- Cr 1.9-2.2. Will need renal f/u post DC - Renal US negative 3) HTN- stable 4) DVT prophylaxsis- lovenox 5) HTN- stable 6) DM- ISS and actos Subjective Date patient seen: May 25, 2018 Time patient seen: 08:43 ROS Limited/Unobtainable: No Allergies: Coded Allergies: ALPRAZOLAM (Verified Allergy, Mild, 05/22/18) All Systems: reviewed and negative except above Subjective Patient awaiting Dobutamine stress. Chest pain resolved Objective Last 24 Hour Vital Signs Date Time Temp Pulse Resp B/P (MAP) Pulse Ox O2 Delivery O2 Flow Rate FiO2 05/25/18 08:01 64 148/66 05/25/18 04:00 98.4 65 20 148/66 (93) 98 05/25/18 04:00 64 05/25/18 00:00 64 05/25/18 00:00 98.4 63 20 146/65 (92) 93 05/24/18 21:00 Room Air 05/24/18 20:00 98.4 65 20 130/66 (87) 95 05/24/18 20:00 65 05/24/18 16:00 97.4 67 18 123/59 (80) 98 05/24/18 16:00 61 05/24/18 12:00 62 05/24/18 12:00 97.3 64 18 139/65 (89) 97 05/24/18 09:00 Room Air Intake and Output 05/24/18 05/25/18 19:00 07:00 Intake Total 240 ml Balance 240 ml Intake Oral 240 ml # Voids 3 4 # Bowel Movements 1 1 Laboratory Tests 05/25/18 06:15: White Blood Count 4.8, Red Blood Count 3.53L, Hemoglobin 11.7L, Hematocrit 33.7L , Mean Corpuscular Volume 95, Mean Corpuscular Hemoglobin 33.2H, Mean Corpuscular Hemoglobin Concent 34.8, Red Cell Distribution Width 11.6, Platelet Count 135L, Mean Platelet Volume 7.1, Neutrophils (%) (Auto) 56.8, Lymphocytes ( %) (Auto) 24.2, Monocytes (%) (Auto) 14.7H, Eosinophils (%) (Auto) 3.3H, Basophils (%) (Auto) 1.0, Sodium Level 140, Potassium Level 3.7, Chloride Level 107, Carbon Dioxide Level 25, Anion Gap 8, Blood Urea Nitrogen 38H, Creatinine 2.2H, Estimat Glomerular Filtration Rate , Glucose Level 108H, Calcium Level 8.4L Height (Feet): 5 Height (Inches): 5.00 Weight (Pounds): 168 General Appearance: no apparent distress, alert EENT: normal ENT inspection Neck: normal alignment, supple Cardiovascular: normal rate, regular rhythm Respiratory/Chest: lungs clear, normal breath sounds Abdomen: non tender, soft Edema: no edema noted Arm (L), no edema noted Arm (R), no edema noted Leg (L), no edema noted Leg (R), no edema noted Pedal (L), no edema noted Pedal (R), no edema noted Generalized Zi Levy MD May 25, 2018 08:47
[2018-05-25] MEDS: Aspirin Baby 81mg ORAL SCH (08:54)
[2018-05-25] MEDS: Memantine 10mg tab ORAL SCH (08:54)
[2018-05-25] MEDS: DULoxetine 30mg cap ORAL SCH (08:54)
--- NOTE | 2018-05-25 08:58 | Pulmonology Progress Note ---
Assessment/Plan Assessment/Plan IMPRESSION: 1. Chest pain, ruled out ACS. 2. Ex-smoker. 3. Hypertension. 4. Hyperlipidemia. 5. Diabetes mellitus. DISCUSSION: Continue present medications and care. Predominant issue is cardiac. Pulmonary status is stable. I will continue to follow carefully as requested by Dr. Levy. Stress test planned for today. Subjective Interval Events: None reported; for stress today Constitutional: Reports: no symptoms HEENT: Repors: no symptoms Respiratory: Reports: no symptoms Cardiovascular: Reports: no symptoms Gastrointestinal/Abdominal: Reports: no symptoms Genitourinary: Reports: no symptoms Neurologic: Reports: no symptoms Allergies: Coded Allergies: ALPRAZOLAM (Verified Allergy, Mild, 05/22/18) Objective Last 24 Hour Vital Signs Date Time Temp Pulse Resp B/P (MAP) Pulse Ox O2 Delivery O2 Flow Rate FiO2 05/25/18 08:01 64 148/66 05/25/18 04:00 98.4 65 20 148/66 (93) 98 05/25/18 04:00 64 05/25/18 00:00 64 05/25/18 00:00 98.4 63 20 146/65 (92) 93 05/24/18 21:00 Room Air 05/24/18 20:00 98.4 65 20 130/66 (87) 95 05/24/18 20:00 65 05/24/18 16:00 97.4 67 18 123/59 (80) 98 05/24/18 16:00 61 05/24/18 12:00 62 05/24/18 12:00 97.3 64 18 139/65 (89) 97 05/24/18 09:00 Room Air Intake and Output 05/24/18 05/25/18 19:00 07:00 Intake Total 240 ml Balance 240 ml Intake Oral 240 ml # Voids 3 4 # Bowel Movements 1 1 General Appearance: no acute distress HEENT: normocephalic Respiratory/Chest: chest wall non-tender, lungs clear Cardiovascular: normal peripheral pulses, normal rate Abdomen: normal bowel sounds, soft, non tender Laboratory Tests 05/25/18 06:15: White Blood Count 4.8, Red Blood Count 3.53L, Hemoglobin 11.7L, Hematocrit 33.7L , Mean Corpuscular Volume 95, Mean Corpuscular Hemoglobin 33.2H, Mean Corpuscular Hemoglobin Concent 34.8, Red Cell Distribution Width 11.6, Platelet Count 135L, Mean Platelet Volume 7.1, Neutrophils (%) (Auto) 56.8, Lymphocytes ( %) (Auto) 24.2, Monocytes (%) (Auto) 14.7H, Eosinophils (%) (Auto) 3.3H, Basophils (%) (Auto) 1.0, Sodium Level 140, Potassium Level 3.7, Chloride Level 107, Carbon Dioxide Level 25, Anion Gap 8, Blood Urea Nitrogen 38H, Creatinine 2.2H, Estimat Glomerular Filtration Rate , Glucose Level 108H, Calcium Level 8.4L Current Medications Medications (Trade) Dose Ordered Sig/Usha Route PRN Reason Start Time Stop Time Status Last Admin Dose Admin Acetaminophen (Tylenol) 650 mg Q4H PRN ORAL Mild Pain (Pain Scale 1-3) 05/22/18 12:45 06/21/18 12:44 05/24/18 22:00 Aspirin (ASA) 81 mg DAILY ORAL 05/23/18 09:00 06/22/18 08:59 05/25/18 08:54 Atorvastatin Calcium (Lipitor) 20 mg BEDTIME ORAL 05/22/18 21:00 06/21/18 20:59 05/24/18 20:46 Clonidine HCl (Catapres Tab) 0.1 mg Q2H PRN ORAL SBP >170mmHg 05/22/18 14:30 06/21/18 14:29 Dextrose (Dextrose 50%) 25 ml Q30M PRN IV Hypoglycemia 05/22/18 12:45 06/21/18 12:44 Dextrose (Dextrose 50%) 50 ml Q30M PRN IV Hypoglycemia 05/22/18 12:45 06/21/18 12:44 Duloxetine HCl (Cymbalta) 60 mg DAILY ORAL 05/23/18 09:00 06/22/18 08:59 05/25/18 08:54 Enoxaparin Sodium (Lovenox) 30 mg Q24H SUBQ 05/24/18 14:00 06/22/18 13:59 05/24/18 14:00 Famotidine (Pepcid) 40 mg DAILY ORAL 05/23/18 09:00 06/22/18 08:59 05/25/18 08:54 Insulin Aspart (NovoLOG) BEFORE MEALS AND HS SUBQ 05/22/18 16:30 06/21/18 16:29 05/25/18 05:52 Levetiracetam (Keppra) 500 mg QHS ORAL 05/22/18 21:00 06/21/18 20:59 05/24/18 20:46 Memantine (Namenda) 10 mg BID ORAL 05/22/18 18:00 06/21/18 17:59 05/25/18 08:54 Metoprolol Succinate (Toprol XL) 50 mg DAILY ORAL 05/24/18 09:00 06/22/18 08:59 05/24/18 08:25 Nitroglycerin (Ntg) 0.4 mg Q5M PRN SL Prn Chest Pain 05/22/18 12:45 06/21/18 12:44 Ondansetron HCl (Zofran) 4 mg Q6H PRN IVP Nausea & Vomiting 05/22/18 12:45 06/21/18 12:44 Pioglitazone HCl (Actos) 15 mg ACBREAKFAST ORAL 05/23/18 06:30 06/22/18 06:29 05/25/18 05:49 Regadenoson (Lexiscan) 0.4 mg ONCE IV 05/25/18 08:00 05/26/18 07:59 Regadenoson (Lexiscan) 0.4 mg ONCE PRN IV STRESS TEST 05/22/18 14:30 05/27/18 14:29 Sodium Chloride 1,000 ml @ 75 mls/hr [id number] IV 05/25/18 09:00 06/24/18 08:59 05/25/18 08:54 Joshua Stoner MD May 25, 2018 08:58
[2018-05-25 12:00] VITALS: BP 149/66
--- NOTE | 2018-05-25 12:13 | Cardiac Electrophysiology PN ---
Assessment/Plan Assessment/Plan 1. Chest pain. The patient with multiple risk factors for coronary artery disease as well as history of prior [place] and PTCA 2010. Ruled out for [place]. Echocardiogram EF 55% Continue aspirin and Lipitor. Nuclear stress test today pending. 2. Atrial fib with rate 105 that converted to SR. On Toprol 50 mg daily. 3. Hyperlipidemia on Lipitor. 4. Hypertension. On metoprolol 50 mg daily. 5. Diabetes on insulin. DARIO RN Subjective Subjective No CP or SOB. Scheduled for nuclear stress test today Objective Last 24 Hour Vital Signs Date Time Temp Pulse Resp B/P (MAP) Pulse Ox O2 Delivery O2 Flow Rate FiO2 05/25/18 09:00 Room Air 05/25/18 08:01 64 148/66 05/25/18 08:00 98.4 65 20 148/66 (93) 98 05/25/18 08:00 59 05/25/18 04:00 98.4 65 20 148/66 (93) 98 05/25/18 04:00 64 05/25/18 00:00 64 05/25/18 00:00 98.4 63 20 146/65 (92) 93 05/24/18 21:00 Room Air 05/24/18 20:00 98.4 65 20 130/66 (87) 95 05/24/18 20:00 65 05/24/18 16:00 97.4 67 18 123/59 (80) 98 05/24/18 16:00 61 05/24/18 12:00 62 05/24/18 12:00 97.3 64 18 139/65 (89) 97 Intake and Output 05/24/18 05/25/18 18:59 06:59 Intake Total 340 ml Balance 340 ml Intake Oral 240 ml IV Total 100 ml # Voids 3 4 # Bowel Movements 1 1 Laboratory Tests Test 05/25/18 06:15 White Blood Count 4.8 K/UL (4.8-10.8) Red Blood Count 3.53 M/UL (4.70-6.10) L Hemoglobin 11.7 G/DL (14.2-18.0) L Hematocrit 33.7 % (42.0-52.0) L Mean Corpuscular Volume 95 FL (80-99) Mean Corpuscular Hemoglobin 33.2 PG (27.0-31.0) H Mean Corpuscular Hemoglobin Concent 34.8 G/DL (32.0-36.0) Red Cell Distribution Width 11.6 % (11.6-14.8) Platelet Count 135 K/UL (150-450) L Mean Platelet Volume 7.1 FL (6.5-10.1) Neutrophils (%) (Auto) 56.8 % (45.0-75.0) Lymphocytes (%) (Auto) 24.2 % (20.0-45.0) Monocytes (%) (Auto) 14.7 % (1.0-10.0) H Eosinophils (%) (Auto) 3.3 % (0.0-3.0) H Basophils (%) (Auto) 1.0 % (0.0-2.0) Sodium Level 140 MMOL/L (136-145) Potassium Level 3.7 MMOL/L (3.5-5.1) Chloride Level 107 MMOL/L (98-107) Carbon Dioxide Level 25 MMOL/L (21-32) Anion Gap 8 mmol/L (5-15) Blood Urea Nitrogen 38 mg/dL (7-18) H Creatinine 2.2 MG/DL (0.55-1.30) H Estimat Glomerular Filtration Rate mL/min (>60) Glucose Level 108 MG/DL (74-106) H Calcium Level 8.4 MG/DL (8.5-10.1) L Objective HEAD AND NECK: No JVD. LUNGS: Clear. CARDIOVASCULAR: Regular S1 and S2 with no gallop or murmur. ABDOMEN: Soft. EXTREMITIES: No pitting edema. Andre Oswald MD May 25, 2018 12:13
[2018-05-25] MEDS: Enoxaparin 30mg Inj SUBQ SCH (14:42)
[2018-05-25 16:00] VITALS: BP 127/84
--- NOTE | 2018-05-27 11:17 | Discharge Summary ---
Discharge Summary Discharge Summary _ DATE OF ADMISSION: 05/22/2018 DATE OF DISCHARGE: 05/25/2018 REASON FOR ADMISSION: 82 years old male with past medical history of diabetes, hypertension, hyperlipidemia, coronary artery disease, status post myocardial infarction 4 years ago, presented to emergency department with complaint of left parasternal chest discomfort and pain. Electrical Contacts Adjuster provided him with aspirin and sublingual nitroglycerin.x2 with significant improvement in pain. No nausea ,no vomiting ,no cough ,no hemoptysis , no leg pain, no palpitations. Upon evaluation vital signs reveal significantly elevated blood pressure 196/ 98. Laboratory workup revealed no leukocytosis, stable hemoglobin and hematocrit. BUN 32, creatinine 1.9. Troponin was negative. EKG showed sinus bradycardia with heart rate 53, incomplete right bundle branch block , no acute ischemic changes. Chest x-ray revealed no acute cardiopulmonary pathology. Patient admitted with acute coronary syndrome, unstable angina with chest pain, hypertension, diabetes mellitus, dementia,. CONSULTANTS: card checker Dr. Oswald pulmonary Dr. Stoner [facility]: Patient admitted to telemetry floor. Serial troponin were negative .EKG revealed no acute ischemic changes. Patient was ruled out for acute myocardial infarction. Drum Sealer closely followed. Echocardiogram revealed preserved ejection fraction 55-60%, no evidence of wall motion abnormality. Moderate aortic insufficiency and right ventricular systolic pressure of 47 consistent with moderate pulmonary hypertension. Patient was on antiplatelet therapy with aspirin. Lipid panel revealed LDL 101. Patient counseled on low-fat low-cholesterol cardiac diabetic diet. Statin was continued. Blood pressure was managed with beta jenny and calcium channel jenny. Blood rpessure stabilized. Pain management was addressed pain was controlled. Nitroglycerin was on board as needed. Chest pain resolved. Patient noted to have an episode of atrial fibrillation , spontaneously converted to sinus rhythm; no further episodes of atrial fibrillation. Patient already on beta jenny and remained in sinus rhythm. Stress test was initially ordered and then canceled, since patient declined. Recommended outpatient stress test. Blood sugar was managed with Actos and sliding scale of insulin. DVT and GI prophylaxis provided. Renal parameters and electrolytes were closely monitored. Renal ultrasound revealed evidence of medical renal disease, but no acute findings. Nephrotoxins were avoided. Patient to follow up as outpatient with plastics process hand. Supplemental oxygen provided as needed to keep pulse oximetry above 92%. Pulmonary toilet provided. Refrigerated National Truck Driver followed. Patient was counseled to continue abstinence from smoking. Respiratory status was stable. Patient was stable for discharge home. FINAL DIAGNOSES: Chest pain in patient with multiply risk factors for coronary artery disease ( hypertension, diabetes mellitus,CAD with history of prior [place], hyperlipidemia) - resolved Possible unstable angina Acute kidney injury/chronic kidney disease stage IV Hypertension Hyperlipidemia Diabetes mellitus Episode of atrial fibrillation, converted to sinus rhythm Ex-smoker DISCHARGE MEDICATIONS: See Medication Reconciliation list. DISCHARGE INSTRUCTIONS: Patient was discharged home . Follow up with primary care provider in one week. Recommended outpatient stress test. Recommended outpatient follow-up with plastics process hand. I have been assigned to dictate discharge summary for this account. I was not involved in the patient's management. Jennifer Pleitez NP May 27, 2018 11:17
== END 2018-05-25 17:55 | disposition home or self-care (01) | DRG 303 ==
LOC: EDBD 10:13 → EMR 10:37 → 2E 11:34 → EDBEDREQ 11:53 → 2E 17:16
DX: I25.110 Atherosclerotic heart disease of native coronary artery with unstable angina pectoris (principal); N17.9 Acute kidney failure, unspecified; N18.4 Chronic kidney disease, stage 4 (severe); E78.5 Hyperlipidemia, unspecified; I25.2 Old myocardial infarction; I48.91 Unspecified atrial fibrillation; Z87.891 Personal history of nicotine dependence; Z79.4 Long term (current) use of insulin; Z88.8 Allergy status to other drugs, medicaments and biological substances; I12.9 Hypertensive chronic kidney disease with stage 1 through stage 4 chronic kidney disease, or unspecified chronic kidney disease; E11.22 Type 2 diabetes mellitus with diabetic chronic kidney disease; Z23 Encounter for immunization
CPT/HCPCS: 36415; 71045; 76770; 80048; 80053; 80061; 80299; 82962; 83880; 84484; 85025; 90686; 93005; 93017; 93306; 93350; 99285; J1815